=== PATIENT | female | born 1945 | race Two or more races ===

== ENCOUNTER 2021-07-26 09:55 | Outpatient (CLI) | payer OTHER | END 2021-07-26 10:07 | disposition home or self-care (01) | LOC: MRI 09:55 | PROVIDERS: ATTEND Neuromusculoskeletal Medicine & OMM | DX: M51.26 Other intervertebral disc displacement, lumbar region (principal); M51.36 Other intervertebral disc degeneration, lumbar region | CPT/HCPCS: 72148 ==

== ENCOUNTER 2021-08-13 10:23 | Outpatient (CLI) | payer OTHER | END 2021-08-13 10:35 | disposition home or self-care (01) | LOC: MRI 10:23 | PROVIDERS: ATTEND Neuromusculoskeletal Medicine & OMM | DX: R41.3 Other amnesia (principal); D49.6 Neoplasm of unspecified behavior of brain | CPT/HCPCS: 70553; Q9965 ==

== ENCOUNTER 2021-08-13 11:07 | Outpatient (CLI) | payer OTHER | END 2021-08-13 11:08 | disposition home or self-care (01) | LOC: LAB 11:07 | PROVIDERS: ATTEND Radiology Diagnostic Radiology | DX: R41.3 Other amnesia (principal) ==